=== PATIENT | female | born 1945 | race Hispanic/Latino ===

== ENCOUNTER 2017-09-07 05:49 | Day surgery (SDC) | payer MEDICARE ==
[2017-09-04 12:15] VITALS: BP 162/73
[2017-09-04 12:34] LABS: BASOPHILS % (AUTO) 0.9 % (0.0-5.0); EOSINOPHILS % (AUTO) 3.4 % (0.0-8.0); HEMATOCRIT 35.1 % (36-48); MEAN CORPUSCULAR HEMOGLOBIN 28.9 pg (27.0-33.0); MEAN CORPUSCULAR HGB CONC 34.8 g/dL (32.0-36.0); MEAN CORPUSCULAR VOLUME 82.9 fL (79-99); MONOCYTES % (AUTO) 7.2 % (3.0-13.0); NEUTROPHILS % (AUTO) 60.5 % (40.0-77.0); PLATELET COUNT (AUTO) 268 K/uL (130-400); RED BLOOD CELL COUNT(AUTO) 4.24 MIL/uL (4.00-5.50); RED CELL DISTRIBUTION WIDTH 14.4 % (11.0-15.5); WHITE BLOOD COUNT (AUTO) 6.2 K/uL (4.8-10.8)
[2017-09-04 12:43] LABS: INR 0.97 (0.85-1.15); PARTIAL THROMBOPLASTIN TIME 27.8 SEC (26.3-35.5); PROTHROMBIN TIME 10.2 SEC (9.6-11.6)
[2017-09-04 12:55] LABS: CREATININE 0.8 mg/dL (0.5-1.5); POTASSIUM 4.6 mmol/L (3.5-5.1)
[2017-09-04 13:32] LABS: APPEARANCE,URINE Clear (CLEAR); BILIRUBIN,URINE Negative (NEGATIVE); COLOR,URINE Yellow (YELLOW); GLUCOSE, URINE (UA) Negative (NEGATIVE); KETONES,URINE Negative (NEGATIVE); LEUKOCYTE ESTERASE ,URINE Trace (NEGATIVE); NITRATE,URINE Negative (NEGATIVE); OCCULT BLOOD,URINE Negative (NEGATIVE); PROTEIN,URINE POS 1+ (NEGATIVE); UROBILINOGEN,URINE 0.2 mg/dL (0.2-1.0)
[2017-09-04 13:41] LABS: BACTERIA,URINE Rare /HPF (None Seen); RBC,URINE 0-1 /HPF (0-1); SQUAMOUS EPITHELIAL CELL,UR Rare /HPF (0-2); WBC,URINE 0-1 /HPF (0-1)
[~2017-09-07] VITALS: Ht 154.9 cm; Wt 75.8 kg
[2017-09-07] VITALS (10 sets, daily range): BP systolic 113–204; BP diastolic 45–74
[~2017-09-07 05:49] MED LIST: AEC81 PO; BIOT10005 PO; CHOL200016 PO; GABA100C PO; INSU10VI3 SQ; LOSA50TA2 PO; METF1000 PO; METO50 PO; OMEP20TA25 PO; PENT400T12 PO; ROSU10TA27 PO; VITA80008 PO; omega 3 PO
[2017-09-07] MEDS ORDERED: SODIUM CHLORIDE 0.9% 1000ML 1,000 ML IV ONE (06:52)
[2017-09-07] MEDS ORDERED: SODIUM BICARB 50MEQ 50ML VIAL ONE (07:09)
[2017-09-07] MEDS ORDERED: ISOVUE-300 100 ML VIAL IV ONE (07:10)
[2017-09-07] MEDS ORDERED: HEPARIN SODIUM 1000UNIT/ML 10ML VIAL ONE (07:10)
[2017-09-07] MEDS ORDERED: LIDOCAINE HCL 2% 20ML ONE (07:10)
[2017-09-07] MEDS ORDERED: NITROGLYCERIN 5 MG/ML 10 ML VIAL IV ONE (07:10)
[2017-09-07] MEDS ORDERED: MEPERIDINE-PF 25 MG/ML SYG ONE (07:29)
[2017-09-07] MEDS ORDERED: MIDAZOLAM HCL 1 MG/ML 2ML VIAL ONE (07:29)
[2017-09-07] MEDS ORDERED: HYDRALAZINE HCL 20 MG/ML VIAL ONE (07:40)
[2017-09-07] MEDS ORDERED: CLOPIDOGREL BISULFATE 300 MG TAB ONE (08:21)
[2017-09-07] MEDS ORDERED: ASPIRIN 325MG EC TAB 325 MG TABLET.DR PO ONE (08:21)
[2017-09-07] MEDS ORDERED: SODIUM CHLORIDE 0.9% 1000ML 1,000 ML IV SCH (08:36)
[2017-09-07] MEDS ORDERED: CILO100T PO (08:43)
[2017-09-07] MEDS ORDERED: CLOP75TA32 PO (08:43)
[2017-09-07] MEDS ORDERED: PANT40TA25 PO (08:43)
[2017-09-07] MEDS ORDERED: GLUCAGON 1MG KIT 1 MG ML IM PRN (08:45)
[2017-09-07] MEDS ORDERED: DEXTROSE 50%-WATER 50 ML DISP.SYRIN IV PRN (08:45)
[2017-09-07] MEDS ORDERED: ONDANSETRON HCL 4 MG/2 ML VIAL IVP SCH (09:10)
[2017-09-07] MEDS ORDERED: ONDANSETRON HCL MDV 20ML 2 MG/ML VIAL ONE (09:14)
[2017-09-07] MEDS ORDERED: INSULIN HUMULIN R 100 UNIT/ML 3ML SQ SCH (11:30)
== END 2017-09-07 13:00 | disposition home or self-care (01) ==
LOC: DAH 05:49
PROVIDERS: ATTEND Internal Medicine Cardiovascular Disease
DX: E11.51 Type 2 diabetes mellitus with diabetic peripheral angiopathy without gangrene (principal); I70.213 Atherosclerosis of native arteries of extremities with intermittent claudication, bilateral legs; I10 Essential (primary) hypertension; E78.5 Hyperlipidemia, unspecified; K21.9 Gastro-esophageal reflux disease without esophagitis; E66.9 Obesity, unspecified; I21.3 ST elevation (STEMI) myocardial infarction of unspecified site; I25.810 Atherosclerosis of coronary artery bypass graft(s) without angina pectoris; Z95.1 Presence of aortocoronary bypass graft; Z79.84 Long term (current) use of oral hypoglycemic drugs; Z79.899 Other long term (current) drug therapy; Z79.4 Long term (current) use of insulin; Z68.29 Body mass index [BMI] 29.0-29.9, adult; I35.0 Nonrheumatic aortic (valve) stenosis; Z88.0 Allergy status to penicillin
CPT/HCPCS: 36415; 37226; 71045; 75625; 75716; 80048; 81001; 82948 ×3; 85025; 85610; 85730; 93005; 99152; A4606; C1725; C1760; C1769; C1874; C1893; C1894; J0360; J1644; J1815; J2175; J2250; J3490 ×3; J7030; Q9967; 99153; 99156; 99157

== ENCOUNTER 2018-03-09 07:14 | Observation (INO) | payer MEDICARE ==
[2018-03-05 14:33] VITALS: BP 160/61
[2018-03-05 14:40] LABS: BASOPHILS % (AUTO) 0.5 % (0.0-5.0); EOSINOPHILS % (AUTO) 2.2 % (0.0-8.0); HEMATOCRIT 33.9 % (36-48); LYMPHOCYTES % (AUTO) 26.9 % (21.0-51.0); MEAN CORPUSCULAR HEMOGLOBIN 26.9 pg (27.0-33.0); MEAN CORPUSCULAR HGB CONC 32.4 g/dL (32.0-36.0); MEAN CORPUSCULAR VOLUME 82.9 fL (79-99); MONOCYTES % (AUTO) 7.4 % (3.0-13.0); PLATELET COUNT (AUTO) 273 K/uL (130-400); RED BLOOD CELL COUNT(AUTO) 4.09 MIL/uL (4.00-5.50); RED CELL DISTRIBUTION WIDTH 16.8 % (11.0-15.5); WHITE BLOOD COUNT (AUTO) 6.2 K/uL (4.8-10.8)
[2018-03-05 14:59] LABS: INR 0.97 (0.85-1.15); PARTIAL THROMBOPLASTIN TIME 29.7 SEC (26.3-35.5); POTASSIUM 4.9 mmol/L (3.5-5.1); PROTHROMBIN TIME 10.2 SEC (9.6-11.6)
[2018-03-05 15:32] LABS: APPEARANCE,URINE Clear (CLEAR); BILIRUBIN,URINE Negative (NEGATIVE); COLOR,URINE Yellow (YELLOW); GLUCOSE, URINE (UA) >=1000 mg/dL (NEGATIVE); KETONES,URINE Negative (NEGATIVE); LEUKOCYTE ESTERASE ,URINE Negative (NEGATIVE); NITRATE,URINE Negative (NEGATIVE); OCCULT BLOOD,URINE Trace (NEGATIVE); PROTEIN,URINE POS 1+ (NEGATIVE)
[2018-03-05 15:45] LABS: BACTERIA,URINE Rare /HPF (None Seen); RBC,URINE 0-1 /HPF (0-1); SQUAMOUS EPITHELIAL CELL,UR Rare /HPF (0-2); WBC,URINE 0-1 /HPF (0-1)
[~2018-03-09] VITALS: Ht 152.4 cm; Wt 75.2 kg
[2018-03-09] VITALS (14 sets, daily range): BP systolic 124–158; BP diastolic 55–112
[~2018-03-09 07:14] MED LIST changes: -CHOL200016 PO; +CILO100T PO; +CLOP75TA32 PO; +GABA-529 PO; -GABA100C PO; +GARL1000 PO; -OMEP20TA25 PO; +PANT40TA25 PO; -PENT400T12 PO; +SODIUM CHLORIDE 0.9% 500ML 500 ML IV SCH; +VITAMIN D3 PO
[2018-03-09] MEDS ORDERED: SODIUM CHLORIDE 0.9% 1000ML 1,000 ML IV ONE (07:29)
[2018-03-09] MEDS ORDERED: IOHEXOL 350 MG/ML 100ML INFUS..BTL IV ONE (09:44)
[2018-03-09] MEDS ORDERED: SODIUM BICARB 50MEQ 50ML VIAL ONE (09:44)
[2018-03-09] MEDS ORDERED: NITROGLYCERIN 5 MG/ML 10 ML VIAL IV ONE (09:44)
[2018-03-09] MEDS ORDERED: HEPARIN SODIUM 1000UNIT/ML 10ML VIAL ONE (09:44)
[2018-03-09] MEDS ORDERED: LIDOCAINE HCL 2% 20ML ONE (09:45)
[2018-03-09] MEDS ORDERED: IOHEXOL-350 50ML VIAL IV ONE (09:45)
[2018-03-09] MEDS ORDERED: MIDAZOLAM HCL 1 MG/ML 2ML VIAL ONE (10:26)
[2018-03-09] MEDS ORDERED: MEPERIDINE-PF 25 MG/ML SYG ONE (10:26)
[2018-03-09] MEDS ORDERED: HYDRALAZINE HCL 20 MG/ML VIAL ONE (11:26)
[2018-03-09] MEDS ORDERED: ACETAMINOPHEN-CODEINE 300/30MG TAB PO PRN (12:00)
[2018-03-09] MEDS ORDERED: HYDRALAZINE HCL 20 MG/ML VIAL IV PRN (12:00)
[2018-03-09] MEDS ORDERED: DEXTROSE 50%-WATER 50 ML DISP.SYRIN IV PRN (12:00)
[2018-03-09] MEDS ORDERED: ONDANSETRON HCL 4 MG/2 ML VIAL IVP PRN (12:00)
[2018-03-09] MEDS ORDERED: INSULIN HUMULIN R 100 UNIT/ML 3ML ONE (14:05)
[2018-03-09] MEDS: INSULIN HUMULIN R 100 UNIT/ML 3ML SQ SCH ×2 (14:19→21:36)
[2018-03-09] MEDS: INSULIN HUMULIN 70/30 100 UNIT/ML 3ML SQ SCH (16:30)
[2018-03-09] MEDS: SODIUM CHLORIDE 0.9% 1000ML 1,000 ML IV SCH (17:06)
[2018-03-09] MEDS: ACETAMINOPHEN-CODEINE 300/30MG TAB PO PRN (17:26)
[2018-03-09] MEDS ORDERED: ATORVASTATIN CALCIUM 20 MG TABLET PO SCH (21:00)
[2018-03-09] MEDS: GABAPENTIN 100 MG CAPSULE PO SCH (21:28)
[2018-03-09] MEDS: METOPROLOL TARTRATE 50 MG TAB PO SCH (21:29)
[2018-03-09] MEDS: CILOSTAZOL 100 MG TAB PO SCH (21:29)
[2018-03-10] VITALS: BP 141/70
[2018-03-10] MEDS: SODIUM CHLORIDE 0.9% 1000ML 1,000 ML IV SCH (00:47)
[2018-03-10 04:00] VITALS: BP 131/69
[2018-03-10 04:09] LABS: HEMATOCRIT 31.5 % (36-48); MEAN CORPUSCULAR HEMOGLOBIN 27.4 pg (27.0-33.0); MEAN CORPUSCULAR HGB CONC 33.4 g/dL (32.0-36.0); PLATELET COUNT (AUTO) 262 K/uL (130-400); RED BLOOD CELL COUNT(AUTO) 3.84 MIL/uL (4.00-5.50); RED CELL DISTRIBUTION WIDTH 16.9 % (11.0-15.5); WHITE BLOOD COUNT (AUTO) 7.6 K/uL (4.8-10.8)
[2018-03-10 04:30] LABS: CREATININE 0.9 mg/dL (0.5-1.5); POTASSIUM 3.9 mmol/L (3.5-5.1)
[2018-03-10] MEDS: ACETAMINOPHEN-CODEINE 300/30MG TAB PO PRN (05:06)
[2018-03-10] MEDS: INSULIN HUMULIN R 100 UNIT/ML 3ML SQ SCH (07:30)
[2018-03-10 07:39] VITALS: BP 166/75
[2018-03-10] MEDS: INSULIN HUMULIN 70/30 100 UNIT/ML 3ML SQ SCH (07:41)
[2018-03-10] MEDS ORDERED: LOSARTAN 50 MG TABLET PO SCH (09:00)
[2018-03-10] MEDS ORDERED: CLOPIDOGREL BISULFATE 75 MG TAB PO SCH (09:00)
[2018-03-10] MEDS ORDERED: ASPIRIN 81 MG EC TAB PO SCH (09:00)
[2018-03-10] MEDS ORDERED: GARLIC 1000 MG PO SCH (09:00)
[2018-03-10] MEDS ORDERED: PANTOPRAZOLE SODIUM 40 MG TABLET.DR PO SCH (09:00)
[2018-03-10] MEDS ORDERED: VITAMIN A 10000 UNIT CAPSULE PO SCH (09:00)
[2018-03-10] MEDS ORDERED: **HM** VIT D3 50MCG PO SCH (09:00)
[2018-03-10] MEDS ORDERED: BIOTIN 10000 MCG PO SCH (09:00)
[2018-03-10] MEDS ORDERED: FISH OIL 1000 MG/CAP PO SCH (09:00)
[2018-03-10] MEDS: CILOSTAZOL 100 MG TAB PO SCH (09:18)
[2018-03-10] MEDS: GABAPENTIN 100 MG CAPSULE PO SCH (09:18)
[2018-03-10] MEDS: METOPROLOL TARTRATE 50 MG TAB PO SCH (09:18)
[2018-03-10 11:28] VITALS: BP 146/62
== END 2018-03-10 11:50 | disposition home or self-care (01) ==
LOC: DAH 07:14 → DAHIP 07:15 → 2DH 15:09
PROVIDERS: ADMIT Internal Medicine Cardiovascular Disease; ATTEND Internal Medicine Cardiovascular Disease
DX: I25.118 Atherosclerotic heart disease of native coronary artery with other forms of angina pectoris (principal); E11.51 Type 2 diabetes mellitus with diabetic peripheral angiopathy without gangrene; E78.2 Mixed hyperlipidemia; I10 Essential (primary) hypertension; E66.9 Obesity, unspecified; I25.2 Old myocardial infarction; I35.0 Nonrheumatic aortic (valve) stenosis; I70.201 Unspecified atherosclerosis of native arteries of extremities, right leg; K21.9 Gastro-esophageal reflux disease without esophagitis; Z95.1 Presence of aortocoronary bypass graft; Z79.4 Long term (current) use of insulin; Z82.0 Family history of epilepsy and other diseases of the nervous system; Z83.3 Family history of diabetes mellitus; Z82.3 Family history of stroke; Z82.49 Family history of ischemic heart disease and other diseases of the circulatory system; Z82.5 Family history of asthma and other chronic lower respiratory diseases; Z79.899 Other long term (current) drug therapy; Z79.01 Long term (current) use of anticoagulants
CPT/HCPCS: 36415 ×3; 71045; 80048 ×2; 80061; 81001; 82948 ×6; 85025; 85027; 85347 ×2; 85610; 85730; 93005; 93461; 96372 ×2; 96374; A4606; C1760 ×2; C1769 ×4; C1874; C1887; C1893; C1894; C9600; G0378 ×29; J0360; J1644 ×2; J1815 ×3; J2175; J2250; J2405; J3490 ×3; J7030; Q9965 ×2; Q9967 ×2; 99156; 99157

== ENCOUNTER 2020-02-23 06:04 | Day surgery (SDC) | payer OTHER, MEDICARE ==
[2020-02-22 12:15] LABS: BASOPHILS % (AUTO) 0.5 % (0.0-5.0); EOSINOPHILS % (AUTO) 1.8 % (0.0-8.0); HEMATOCRIT 34.9 % (36-48); LYMPHOCYTES % (AUTO) 17.2 % (21.0-51.0); MEAN CORPUSCULAR HEMOGLOBIN 25.4 pg (27.0-33.0); MEAN CORPUSCULAR HGB CONC 30.7 g/dL (32.0-36.0); MEAN CORPUSCULAR VOLUME 82.9 fL (79-99); MONOCYTES % (AUTO) 6.1 % (3.0-13.0); NEUTROPHILS % (AUTO) 74.1 % (40.0-77.0); PLATELET COUNT (AUTO) 274 K/uL (130-400); RED BLOOD CELL COUNT(AUTO) 4.21 MIL/uL (4.00-5.50); RED CELL DISTRIBUTION WIDTH 14.8 % (11.0-15.5); WHITE BLOOD COUNT (AUTO) 6.1 K/uL (4.8-10.8)
[2020-02-22 12:17] LABS: APPEARANCE,URINE Clear (CLEAR); BILIRUBIN,URINE Negative (NEGATIVE); COLOR,URINE Yellow (YELLOW); GLUCOSE, URINE (UA) >=1000 mg/dL (NEGATIVE); KETONES,URINE Negative (NEGATIVE); LEUKOCYTE ESTERASE ,URINE Negative (NEGATIVE); NITRATE,URINE Negative (NEGATIVE); OCCULT BLOOD,URINE Negative (NEGATIVE); PROTEIN,URINE POS 1+ mg/dL (NEGATIVE); UROBILINOGEN,URINE 0.2 mg/dL (0.2-1.0)
[2020-02-22 12:23] LABS: CREATININE 1.1 mg/dL (0.5-1.5); POTASSIUM 4.8 mmol/L (3.5-5.1)
[2020-02-22 12:30] LABS: INR 0.98 (0.85-1.15); PARTIAL THROMBOPLASTIN TIME 28.6 SEC (26.3-35.5); PROTHROMBIN TIME 10.6 SEC (9.6-11.6)
[2020-02-22 12:43] LABS: BACTERIA,URINE Rare /HPF (None Seen); RBC,URINE 0-1 /HPF (0-1); SQUAMOUS EPITHELIAL CELL,UR Rare /HPF (0-2); WBC,URINE 0-1 /HPF (0-1)
[2020-02-22 15:13] VITALS: BP 156/74
[2020-02-23] VITALS (10 sets, daily range): BP systolic 120–158; BP diastolic 58–87
[~2020-02-23] VITALS: Ht 152.4 cm; Wt 75.5 kg
[~2020-02-23 06:04] MED LIST changes: -BIOT10005 PO; +BIOT10TA PO; +DOXY100C2 PO; +LISI10TA7 PO; -LOSA50TA2 PO; +MVIT PO; -PANT40TA25 PO; +PANT40TA55 PO; -ROSU10TA27 PO; +ROSU10TA28 PO; -omega 3 PO
--- NOTE | 2020-02-23 06:30 | NUR ---
DAY PT ARRIVAL PT ARRIVED FROM HOME, NOTED IN NO APPARENT DISTRESS, AT [place] , SISTER TO COME INTO D/T HUSBANDS DEMENTIA PER FAMILY. PREP STARTED AT THIS TIME.
[2020-02-23] MEDS ORDERED: HEPARIN SODIUM 1000UNIT/ML 10ML VIAL ONE (07:13)
[2020-02-23] MEDS ORDERED: SODIUM BICARB 50MEQ 50ML VIAL 50 ML ONE (07:13)
[2020-02-23] MEDS ORDERED: LIDOCAINE HCL 2% 20ML ONE (07:14)
[2020-02-23] MEDS ORDERED: MIDAZOLAM HCL 1 MG/ML 2ML VIAL ONE ×2 (07:14→07:51)
[2020-02-23] MEDS ORDERED: IOHEXOL 350 MG/ML 100ML INFUS..BTL IV ONE (07:14)
[2020-02-23] MEDS ORDERED: IOHEXOL-350 50ML VIAL IV ONE (07:14)
[2020-02-23] MEDS ORDERED: MEPERIDINE-PF 25 MG/ML SYG ONE ×2 (07:14→07:51)
[2020-02-23] MEDS ORDERED: NITROGLYCERIN 2 MG/VIAL VIAL IV ONE (07:14)
[2020-02-23] MEDS ORDERED: SODIUM CHLORIDE 0.9% 1000ML 1,000 ML IV SCH (08:00)
[2020-02-23] MEDS ORDERED: LABETALOL HCL 5 MG/ML 20ML VIAL IV ONE (08:28)
[2020-02-23] MEDS ORDERED: DEXTROSE 50%-WATER 50 ML DISP.SYRIN IV PRN (08:45)
[2020-02-23] MEDS ORDERED: GLUCAGON 1MG KIT 1 MG ML IM PRN (08:45)
[2020-02-23] MEDS ORDERED: SODIUM CHLORIDE 0.9% 10 ML VIAL IVP SCH (08:45)
--- NOTE | 2020-02-23 09:05 | NUR ---
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
[2020-02-23] MEDS ORDERED: INSULIN HUMULIN R 100 UNIT/ML 3ML SQ SCH (11:30)
--- NOTE | 2020-02-23 13:05 | NUR ---
PT DC TO HOME PT TAKEN TO ER MAIN ENTRANCE VIA WHEELCHAIR, REMAINS IN NO DISTRESS AND PAIN FREE. sISTER AND IN VEHICLE.
== END 2020-02-23 13:10 | disposition home or self-care (01) ==
LOC: DAH 06:04
PROVIDERS: ATTEND Internal Medicine Cardiovascular Disease
DX: I25.10 Atherosclerotic heart disease of native coronary artery without angina pectoris (principal); Z95.1 Presence of aortocoronary bypass graft; E11.9 Type 2 diabetes mellitus without complications; E78.5 Hyperlipidemia, unspecified; I10 Essential (primary) hypertension; K21.9 Gastro-esophageal reflux disease without esophagitis; Z88.0 Allergy status to penicillin; Z79.01 Long term (current) use of anticoagulants; Z79.899 Other long term (current) drug therapy
CPT/HCPCS: 36415; 71045; 80048; 81001; 82948; 85025; 85610; 85730; 93005; 93461; A4215; A4216; A4221; A4222; A4223; A4606; A4663; C1760; C1769 ×2; C1893; C1894 ×2; J1644; J2175 ×2; J2250 ×2; J3490 ×4; Q9965; Q9967 ×2; 99156; 99157

== ENCOUNTER → 2020-03-23 | Outpatient (CLI) | payer OTHER, MEDICARE ==
[~2020-03-23] MED LIST changes: -SODIUM CHLORIDE 0.9% 500ML 500 ML IV SCH
[2020-03-23 08:44] LABS: CREATININE 0.9 mg/dL (0.5-1.5)
== END | disposition home or self-care (01) ==
LOC: LAB 07:02
PROVIDERS: ATTEND Internal Medicine Cardiovascular Disease
DX: I10 Essential (primary) hypertension (principal)
CPT/HCPCS: 36415; 82565; 84520

== ENCOUNTER → 2020-04-03 | Outpatient (CLI) | payer OTHER, MEDICARE ==
[~2020-04-03] MED LIST changes: +IOHEXOL 350 MG/ML 100ML INFUS..BTL IV ONE; +METOPROLOL TARTRATE 1 MG/ML 5ML VIAL IV ONE
== END | disposition home or self-care (01) ==
LOC: RAH 08:02
PROVIDERS: ATTEND Internal Medicine Cardiovascular Disease
DX: J98.4 Other disorders of lung (principal); I70.0 Atherosclerosis of aorta; K76.0 Fatty (change of) liver, not elsewhere classified; I10 Essential (primary) hypertension; I35.0 Nonrheumatic aortic (valve) stenosis
CPT/HCPCS: 74174; 75574; J3490; Q9967

== ENCOUNTER 2020-05-16 10:48 | Emergency (ER) | payer MEDICARE ==
[~2020-05-16 10:48] MED LIST changes: -DOXY100C2 PO; +DOXY100C5 PO; -IOHEXOL 350 MG/ML 100ML INFUS..BTL IV ONE; +LISI10TA24 PO; -LISI10TA7 PO; -METOPROLOL TARTRATE 1 MG/ML 5ML VIAL IV ONE
[2020-05-16 11:01] LABS: BASOPHILS % (AUTO) 0.5 % (0.0-5.0); EOSINOPHILS % (AUTO) 3.4 % (0.0-8.0); LYMPHOCYTES % (AUTO) 16.7 % (21.0-51.0); MEAN CORPUSCULAR HEMOGLOBIN 25.3 pg (27.0-33.0); MEAN CORPUSCULAR HGB CONC 30.9 g/dL (32.0-36.0); MEAN CORPUSCULAR VOLUME 81.9 fL (79-99); MONOCYTES % (AUTO) 7.3 % (3.0-13.0); NEUTROPHILS % (AUTO) 71.8 % (40.0-77.0); PLATELET COUNT (AUTO) 258 K/uL (130-400); RED BLOOD CELL COUNT(AUTO) 4.03 MIL/uL (4.00-5.50); RED CELL DISTRIBUTION WIDTH 15.3 % (11.0-15.5); WHITE BLOOD COUNT (AUTO) 6.4 K/uL (4.8-10.8)
[2020-05-16] MEDS ORDERED: IOHEXOL 350 MG/ML 100ML INFUS..BTL IV ONE (11:03)
[2020-05-16] MEDS ORDERED: MIDAZOLAM HCL 1 MG/ML 2ML VIAL ONE (11:03)
[2020-05-16] MEDS ORDERED: IOHEXOL-350 50ML VIAL IV ONE (11:03)
[2020-05-16] MEDS ORDERED: NITROGLYCERIN 2 MG VIAL IV ONE (11:03)
[2020-05-16] MEDS ORDERED: METOPROLOL TARTRATE 1 MG/ML 5ML VIAL IV ONE ×2 (11:04→11:16)
[2020-05-16] MEDS ORDERED: FENTANYL CITRATE PF 50 MCG/1 ML 2ML VIAL ONE (11:04)
[2020-05-16] MEDS ORDERED: BIVALIRUDIN 250 MG/VIAL IV ONE (11:04)
[2020-05-16] MEDS ORDERED: LIDOCAINE HCL 400MG/20ML VIAL ONE (11:04)
[2020-05-16 11:12] LABS: CREATININE 1.1 mg/dL (0.5-1.5)
[2020-05-16 11:19] LABS: ALBUMIN 3.7 g/dL (3.5-5.0); BILIRUBIN,TOTAL 0.6 mg/dL (0.2-1.0); TOTAL PROTEIN, SERUM 7.5 g/dL (6.0-8.3)
[2020-05-16 11:59] LABS: INR 1.01 (0.85-1.15)
[2020-05-16 12:00] LABS: PARTIAL THROMBOPLASTIN TIME 27.4 SEC (26.3-35.5)
[2020-05-16] MEDS ORDERED: METOPROLOL TARTRATE 50 MG TAB ONE (15:39)
[2020-05-16] MEDS ORDERED: FUROSEMIDE 20 MG TABLET ONE (15:39)
[2020-05-16] MEDS ORDERED: INSULIN HUMULIN 70/30 100 UNIT/ML 3ML SQ ONE (17:35)
== END 2020-05-16 22:05 | disposition short-term general hospital (02) ==
LOC: EDH 10:48
DX: I21.3 ST elevation (STEMI) myocardial infarction of unspecified site (principal); I35.0 Nonrheumatic aortic (valve) stenosis; Z20.822 Contact with and (suspected) exposure to COVID-19; I10 Essential (primary) hypertension; E11.9 Type 2 diabetes mellitus without complications; E78.00 Pure hypercholesterolemia, unspecified; Z88.0 Allergy status to penicillin
CPT/HCPCS: 36415; 71045; 80053; 83880; 84484 ×2; 85025; 85610; 85730; 87426; 93005 ×2; 96374; 96375; 99285; J1815; J3490 ×3; U0003; J0583; J1644; J2250; J3010; Q9967

== ENCOUNTER → 2020-07-11 | Outpatient (CLI) | payer MEDICARE ==
[~2020-07-11] MED LIST changes: +DOXY100C2 PO; -DOXY100C5 PO
== END | disposition home or self-care (01) ==
LOC: SHCH 11:00
PROVIDERS: ATTEND Internal Medicine Cardiovascular Disease
DX: I08.0 Rheumatic disorders of both mitral and aortic valves (principal); Z95.2 Presence of prosthetic heart valve
CPT/HCPCS: 93306; 93356

== ENCOUNTER → 2023-04-09 | Outpatient (CLI) | payer MEDICARE ==
[~2023-04-09] MED LIST changes: -CILO100T PO; +CILO100T3 PO; -DOXY100C2 PO; +DOXY100C5 PO
[2023-04-09 12:32] LABS: BILIRUBIN,TOTAL 0.7 mg/dL (0.2-1.0); CREATININE 2.7 mg/dL (0.5-1.5); MAGNESIUM 1.5 mg/dL (1.80-2.40); POTASSIUM 5.4 mmol/L (3.5-5.1); TOTAL PROTEIN, SERUM 8.2 g/dL (6.0-8.3)
== END | disposition home or self-care (01) ==
LOC: LAB 09:13
PROVIDERS: ATTEND Physician Assistant
DX: I10 Essential (primary) hypertension (principal)
CPT/HCPCS: 36415; 80053; 83735; 83880

== ENCOUNTER → 2023-04-13 | Outpatient (CLI) | payer MEDICARE ==
[~2023-04-13] VITALS: Ht 152.4 cm; Wt 71.0 kg
[~2023-04-13] MED LIST changes: +AMLO-257 PO; +BETA1TAB18 PO; +BIOT10005 PO; +FERR-82 PO; +FURO20TA4 PO; +HYDR12.54 PO; +INSU100I35 SQ; +METO100T14 PO; +SPIR25TA6 PO; +omega 3 PO; +vitamin d3 PO
[2023-04-13 15:12] VITALS: BP 151/61; PULSE 79; RESP 18
[2023-04-13 15:14] LABS: APPEARANCE,URINE CLOUDY (CLEAR); BILIRUBIN,URINE NEGATIVE (NEGATIVE); COLOR,URINE COLORLESS (YELLOW); GLUCOSE, URINE (UA) >=1000 mg/dL (NEGATIVE); KETONES,URINE NEGATIVE (NEGATIVE); LEUKOCYTE ESTERASE ,URINE 500 Leu/uL (NEGATIVE); NITRATE,URINE NEGATIVE (NEGATIVE); OCCULT BLOOD,URINE NEGATIVE (NEGATIVE); PH,URINE 5.5 (5.0-8.0); PROTEIN,URINE NEGATIVE (NEGATIVE); UROBILINOGEN,URINE 0.2 mg/dL (0.2-1.0)
[2023-04-13 15:14] LABS: BASOPHILS # (AUTO) 0.05 K/uL (0.00-0.20); BASOPHILS % (AUTO) 0.7 % (0.0-5.0); EOSINOPHILS # (AUTO) 0.12 K/uL (0.00-0.70); EOSINOPHILS % (AUTO) 1.7 % (0.0-8.0); HEMATOCRIT 33.3 % (36-48); IMMATURE GRANULOCYTE ABSOLUTE 0.02 K/uL (0-1); LYMPHOCYTES # (AUTO) 1.5 K/uL (1.0-4.8); LYMPHOCYTES % (AUTO) 20.8 % (21.0-51.0); MEAN CORPUSCULAR HEMOGLOBIN 29.3 pg (27.0-33.0); MEAN CORPUSCULAR HGB CONC 32.7 g/dL (32.0-36.0); MEAN CORPUSCULAR VOLUME 89.5 fL (79-99); MONOCYTES # (AUTO) 0.6 K/uL (0.1-1.0); MONOCYTES % (AUTO) 8.8 % (3.0-13.0); NEUTROPHILS # (AUTO) 4.8 K/uL (1.8-7.7); NEUTROPHILS % (AUTO) 67.7 % (40.0-77.0); PLATELET COUNT (AUTO) 241 K/uL (130-400); RED BLOOD CELL COUNT(AUTO) 3.72 MIL/uL (4.00-5.50); RED CELL DISTRIBUTION WIDTH 13.7 % (11.0-15.5); WHITE BLOOD COUNT (AUTO) 7.1 K/uL (4.8-10.8)
[2023-04-13 15:19] LABS: ADD UA MICROSCOPIC YES
[2023-04-13 15:29] LABS: INR 0.94 (0.85-1.15); PROTHROMBIN TIME 10.9 SEC (9.6-11.6)
[2023-04-13 15:30] LABS: PARTIAL THROMBOPLASTIN TIME 27.6 SEC (26.3-35.5)
[2023-04-13 15:38] LABS: CREATININE 2.9 mg/dL (0.5-1.5); POTASSIUM 5.1 mmol/L (3.5-5.1)
[2023-04-13 16:08] LABS: BACTERIA,URINE RARE /HPF (None Seen); MUCUS,URINE RARE LPF (None Seen); OTHER CASTS, URINE 3 /LPF (None Seen); SQUAMOUS EPITHELIAL CELL,UR RARE /HPF (0-2); WBC CLUMP FEW /HPF (0-1); WBC,URINE 51-100 /HPF (0-1)
[2023-04-13 16:34] LABS: B-TYPE NATRIURETIC PEPTIDE 261 pg/mL (0-100)
== END | disposition home or self-care (01) ==
LOC: DAH 10:00 → EDSTATUS 14:00
PROVIDERS: ATTEND Internal Medicine Cardiovascular Disease
DX: Z01.818 Encounter for other preprocedural examination (principal); I25.10 Atherosclerotic heart disease of native coronary artery without angina pectoris; I51.7 Cardiomegaly; Z98.890 Other specified postprocedural states; Z79.01 Long term (current) use of anticoagulants; Z79.899 Other long term (current) drug therapy
CPT/HCPCS: 36415; 71045; 80048; 81001; 83880; 85025; 85610; 85730; 87088; 93005